=== PATIENT | female | born 1960 | race Two or more races ===

== ENCOUNTER 2020-11-05 10:51 | Outpatient (CLI) | payer OTHER ==
[~2020-11-05 10:51] MED LIST: DICLOFENAC SODI50 MG PO; NORFLEX100MG PO; SYNTHROID50 MCG PO; ZIAC 2.5-6.251 EACH
[2020-11-29] MEDS ORDERED: DICLOFENAC POTA50 MG PO (09:35)
== END 2020-11-05 13:38 | disposition home or self-care (01) ==
LOC: MRI 10:51
PROVIDERS: ATTEND Physical Medicine & Rehabilitation
DX: M54.5 Low back pain (principal)
CPT/HCPCS: 72148

== ENCOUNTER 2021-07-17 12:56 | Outpatient (CLI) | payer OTHER ==
[~2021-07-17 12:56] MED LIST changes: +DICLOFENAC POTA50 MG PO; +LODINE XL500 MG PO
== END 2021-07-17 13:05 | disposition home or self-care (01) ==
LOC: RAD 12:56
PROVIDERS: ATTEND Orthopaedic Surgery
DX: M25.511 Pain in right shoulder (principal)

== ENCOUNTER 2021-10-02 14:13 | Outpatient (CLI) | payer OTHER | END 2021-10-02 14:23 | disposition home or self-care (01) | LOC: RAD 14:13 | PROVIDERS: ATTEND Orthopaedic Surgery | DX: M25.571 Pain in right ankle and joints of right foot (principal) ==

== ENCOUNTER 2023-09-02 14:17 | Outpatient (CLI) | payer OTHER | END 2023-09-02 14:21 | disposition home or self-care (01) | LOC: RAD 14:17 | PROVIDERS: ATTEND Orthopaedic Surgery | DX: M25.562 Pain in left knee (principal); M23.92 Unspecified internal derangement of left knee ==

== ENCOUNTER → 2023-09-13 09:01 | Outpatient (CLI) | payer OTHER ==
[~2023-09-13 09:01] MED LIST changes: +BISOPROLOL FUMAR5 MG PO; +LEVOTHYROXINE25 MCG PO
[2023-09-13 10:04] LABS: HEMATOCRIT 38.7 % (36.0-45.00); HEMOGLOBIN 13.2 g/dL (12.0-15.00); MEAN CELL VOLUME 98.8 fL (80.00-100.00); MEAN CORPUSCULAR HEMOGLOBIN 33.8 pg (27.00-32.0); MEAN CORPUSCULAR HGB CONC 34.2 g/dl (32.0-36.0); PLATELET COUNT 208 K/uL (150-450); RED BLOOD COUNT 3.91 M/uL (4.00-6.00); RED CELL DISTRIBUTION WIDTH 13.6 % (11.5-14.5)
[2023-09-13 10:21] LABS: PH,URINE 6.5 (5.0-8.0); URINE APPEARANCE Clear; URINE BILIRRUBIN Negative (NEGATIVE); URINE BLOOD Small; URINE COLOR Yellow; URINE GLUCOSE Negative (NEGATIVE); URINE LEUKOCYTE Small; URINE NITRATE Negative; URINE PROTEIN Negative (NEGATIVE); URINE UROBILINOGEN 0.2 E.U./dl
[2023-09-13 10:23] LABS: URINE BACTERIA 163.7 uL (0.0-1933); URINE EPITHELIAL CELLS 16.8 uL (0.0-38.8); URINE RBC 42.9 uL (0.0-20.8); URINE WBC 31.6 uL (0.0-23.2)
[2023-09-13 10:31] LABS: INR 0.98; PARTIAL THROMBOPLASTIN TIME 32.1 SECONDS (22.0-34.0); PROTHROMBIN TIME 10.3 SECONDS (9.0-11.5)
[2023-09-13 10:32] LABS: ALBUMIN 3.7 gm/dL (3.4-5.0); BILIRUBIN TOTAL 0.76 mg/dL (0.3-1.2); CALCIUM 9.7 mg/dL (8.5-10.1); CREATININE SERUM 0.67 mg/dL (0.55-1.02); GFR 88.33; GLOBULINA 4.1 G/DL (2.4-3.5); POTASSIUM 4.63 mEq/L (3.5-5.1); TOTAL PROTEIN 7.8 gm/dL (6.4-8.2)
[2023-09-13 10:40] LABS: COL EPI 132 SECONDS (82-175)
== END | disposition home or self-care (01) ==
LOC: LAB 09:01
PROVIDERS: ATTEND Orthopaedic Surgery
DX: D68.8 Other specified coagulation defects (principal); N39.0 Urinary tract infection, site not specified; E03.8 Other specified hypothyroidism; E11.9 Type 2 diabetes mellitus without complications; E55.9 Vitamin D deficiency, unspecified

== ENCOUNTER 2023-09-27 07:16 | Day surgery (SDC) | payer OTHER ==
[~2023-09-27] VITALS: Ht 165.1 cm; Wt 83.9 kg
[2023-09-27] MEDS ORDERED: CEFAZOLIN SODIUM 1,000 MG VIAL ONE (09:56)
[2023-09-27] MEDS ORDERED: BUPIVACAINE HCL/PF 0.5% 30ML ML ONE (10:06)
[2023-09-27] MEDS ORDERED: EPINEPHRINE HCL/PF 1 MG/ML AMPUL ONE ×2 (10:08→12:48)
[2023-09-27] MEDS ORDERED: LIDOCAINE HCL/EPINEPHRINE 10MG/ML 1% 50ML IJ ONE (10:08)
[2023-09-27] MEDS ORDERED: ISOPROPYL ALCOHOL 30 ML OUNCE TOP SCH (13:45)
[2023-09-27] MEDS ORDERED: CEFAZOLIN SODIUM 1,000 MG VIAL IV SCH (13:45)
[2023-09-27] MEDS ORDERED: EPINEPHRINE HCL/PF 1 MG/ML AMPUL IR SCH (13:45)
[2023-09-27] MEDS ORDERED: BUPIVACAINE HCL/PF 0.5% 30ML ML IV SCH (13:45)
[2023-09-27] MEDS ORDERED: LIDOCAINE HCL/EPINEPHRINE 30 ML ML IJ SCH (13:45)
== END 2023-09-27 16:45 | disposition home or self-care (01) ==
LOC: CIR.AMB 07:16
PROVIDERS: ATTEND Orthopaedic Surgery
DX: M75.121 Complete rotator cuff tear or rupture of right shoulder, not specified as traumatic (principal); M19.011 Primary osteoarthritis, right shoulder; M65.811 Other synovitis and tenosynovitis, right shoulder

== ENCOUNTER 2025-01-08 09:52 | Outpatient (CLI) | payer OTHER ==
[2025-01-08 11:11] LABS: URINE APPEARANCE Clear; URINE BILIRRUBIN Negative (NEGATIVE); URINE BLOOD Negative; URINE COLOR Yellow; URINE GLUCOSE Negative (NEGATIVE); URINE KETONE Trace (NEGATIVE); URINE LEUKOCYTE Moderate; URINE NITRATE Negative; URINE PROTEIN Trace (NEGATIVE); URINE UROBILINOGEN 1.0 E.U./dl
[2025-01-08 11:19] LABS: URINE BACTERIA 823.0 uL (0.0-1933); URINE EPITHELIAL CELLS 31.5 uL (0.0-38.8); URINE RBC 19.9 uL (0.0-20.8); URINE WBC 35.2 uL (0.0-23.2)
[2025-01-08 11:19] LABS: BASO % 0.7 % (0.1-1.2); EOS # 0.14 (0.04-0.54); EOS % 3.4 % (0.7-7.0); LYMPH # 1.57 (1.18-3.74); LYMPH % 38.2 % (19.3-53.1); MEAN PLATELET VOLUME 11.40 fl (9.4-12.4); MONO # 0.37 (0.24-0.82); MONO % 9.0 % (4.7-12.5); NEUT # 1.99 (1.56-6.13); NEUT % 48.5 % (34.0-71.1); RED CELL DISTRIBUTION WIDTH 12.7 % (11.6-14.4)
[2025-01-08 11:29] LABS: URINE CAST 0.00 uL (0.0-1.40)
[2025-01-08 12:24] LABS: ALT/SGPT 24.0 U/L (12-78); AST/SGOT 18.0 U/L (15-37); BILIRUBIN TOTAL 0.92 mg/dL (0.3-1.2); BUN CREA RATIO 23.0 (7.0-25.0); CREATININE SERUM 0.73 mg/dL (0.55-1.02); GFR 79.76; GLOBULINA 4.3 G/DL (2.4-3.5); GLUCOSE FASTING 100.0 mg/dL (65-100); OSMOLALITY SERUM 287.0 MOSM/KG (275-295)
[2025-01-08 12:29] LABS: COL EPI 101 SECONDS (82-175)
[2025-01-08 12:56] LABS: INR 0.98
== END 2025-01-08 10:09 | disposition home or self-care (01) ==
LOC: LAB 09:52
PROVIDERS: Physical Medicine & Rehabilitation; ATTEND Orthopaedic Surgery
DX: D64.9 Anemia, unspecified (principal); E88.89 Other specified metabolic disorders; D68.8 Other specified coagulation defects; N39.0 Urinary tract infection, site not specified; E11.9 Type 2 diabetes mellitus without complications; Z20.822 Contact with and (suspected) exposure to COVID-19; Z76.89 Persons encountering health services in other specified circumstances; M17.12 Unilateral primary osteoarthritis, left knee; M79.652 Pain in left thigh; M79.605 Pain in left leg; I10 Essential (primary) hypertension

== ENCOUNTER 2025-01-18 15:13 | Inpatient (IN) | payer OTHER ==
[~2025-01-18] VITALS: Ht 152.4 cm; Wt 84.8 kg
[2025-01-22] MEDS ORDERED: CEFAZOLIN SODIUM 1,000 MG VIAL ONE ×2 (08:44→17:39)
[2025-01-22] MEDS ORDERED: TRANEXAMIC ACID 100MG/1ML (1000MG) AMPUL ONE (08:44)
[2025-01-22] MEDS ORDERED: KETOROLAC TROMETHAMINE 60 MG VIAL IM ONE (10:40)
[2025-01-22] MEDS ORDERED: BUPIVACAINE HCL/MPF 0.5% 30ML VIAL ONE (10:40)
[2025-01-22] MEDS ORDERED: LIDOCAINE HCL 1%/EPINEPHRINE 20ML VIAL IJ ONE (10:41)
[2025-01-22] MEDS ORDERED: VANCOMYCIN HCL 1,000 MG VIAL ONE (10:41)
[2025-01-22] MEDS ORDERED: MORPHINE SULFATE 4 MG/ML VIAL IV ONE ×3 (12:30→19:50)
[2025-01-22] MEDS ORDERED: ENALAPRILAT DIHYDRATE 1.25 MG/ML VIAL IV PRN (14:00)
[2025-01-22] MEDS ORDERED: TRAMADOL HCL 50 MG TABLET PO PRN (17:00)
[2025-01-22] MEDS ORDERED: CELECOXIB 200 MG CAPSULE PO SCH (17:00)
[2025-01-22] MEDS ORDERED: ONDANSETRON 4 MG TAB.RAPDIS PO PRN (17:00)
[2025-01-22] MEDS ORDERED: SODIUM CHLORIDE 0.45 % 1,000 ML IV SCH (17:00)
[2025-01-22] MEDS ORDERED: PROMETHAZINE HCL 50 MG/ML AMPUL IM PRN (17:00)
[2025-01-22] MEDS ORDERED: MEPERIDINE HCL/PF 50 MG/ML VIAL IM PRN (17:00)
[2025-01-22] MEDS ORDERED: ACETAMINOPHEN 325 MG TABLET PO SCH (17:00)
[2025-01-22] MEDS ORDERED: ONDANSETRON HCL 2 MG/ML VIAL IV PRN (17:00)
[2025-01-22] MEDS ORDERED: CEFAZOLIN SODIUM 1,000 MG VIAL IV SCH (17:00)
[2025-01-22] MEDS ORDERED: PANTOPRAZOLE SODIUM 40 MG TABLET.DR PO SCH (17:18)
[2025-01-22 20:38] VITALS: BP 118/54; O2SAT 95
[2025-01-22] MEDS ORDERED: KETOROLAC TROMETHAMINE 10 MG TABLET PO SCH (21:00)
[2025-01-23] MEDS ORDERED: LEVOTHYROXINE SODIUM 25 MCG TABLET PO SCH (06:00)
[2025-01-23 06:19] LABS: BASO % 0.4 % (0.1-1.2); EOS # 0.15 (0.04-0.54); EOS % 2.9 % (0.7-7.0); LYMPH # 1.17 (1.18-3.74); LYMPH % 23.0 % (19.3-53.1); MEAN PLATELET VOLUME 11.20 fl (9.4-12.4); MONO # 0.52 (0.24-0.82); MONO % 10.2 % (4.7-12.5); NEUT # 3.21 (1.56-6.13); NEUT % 63.1 % (34.0-71.1); RED CELL DISTRIBUTION WIDTH 12.9 % (11.6-14.4)
[2025-01-23] MEDS ORDERED: PATIENTS OWN MEDICATION (MEDICAMENTO EN PISO) PO SCH (09:00)
[2025-01-23] MEDS ORDERED: RIVAROXABAN 10 MG TAB PO SCH (09:00)
[2025-01-23] MEDS ORDERED: IRON FUM,PS/FOLIC/BCOMP,C NO.9 1 CAP CAPSULE PO SCH (09:00)
[2025-01-23 09:02] VITALS: BP 94/43; O2SAT 95
[2025-01-23] MEDS ORDERED: SOD FERRIC GLUC COMPLX/SUCROSE 125 MG in 0.9 % SODIUM CHLORIDE 100 ML IV SCH (17:00)
[2025-01-23 17:30] VITALS: BP 123/71; O2SAT 95
[2025-01-24] VITALS: BP 123/67; O2SAT 95
[2025-01-24 07:54] LABS: BASO % 0.1 % (0.1-1.2); EOS # 0.18 (0.04-0.54); EOS % 2.5 % (0.7-7.0); LYMPH # 1.01 (1.18-3.74); LYMPH % 14.2 % (19.3-53.1); MEAN PLATELET VOLUME 11.30 fl (9.4-12.4); MONO # 0.46 (0.24-0.82); MONO % 6.5 % (4.7-12.5); NEUT # 5.42 (1.56-6.13); NEUT % 76.1 % (34.0-71.1); RED CELL DISTRIBUTION WIDTH 12.7 % (11.6-14.4)
[2025-01-24] MEDS ORDERED: SENNA/DOCUSATE SODIUM 1 TAB TABLET PO SCH (09:00)
[2025-01-24 09:29] VITALS: BP 127/73; O2SAT 95
[2025-01-24 17:05] LABS: COVID-19 AG NEGATIVE (NEGATIVE)
[2025-01-24 17:16] LABS: ALT/SGPT 17.0 U/L (12-78); AST/SGOT 24.0 U/L (15-37); BILIRUBIN TOTAL 0.66 mg/dL (0.3-1.2); BUN CREA RATIO 14.0 (7.0-25.0); CREATININE SERUM 0.7 mg/dL (0.55-1.02); GFR 83.72; GLOBULINA 3.9 G/DL (2.4-3.5); GLUCOSE FASTING 95.0 mg/dL (65-100); OSMOLALITY SERUM 282.0 MOSM/KG (275-295)
[2025-01-24 17:45] VITALS: BP 122/66; O2SAT 97
[2025-01-24] MEDS ORDERED: AMINO ACIDS 1 EACH TABLET PO SCH (19:23)
[2025-01-25 01:23] VITALS: BP 126/72; O2SAT 99
== END 2025-01-25 17:30 | DRG 470 ==
LOC: SURG 01-22 07:00 → O/R 01-22 07:03 → SURG 01-22 15:12 → SURH 01-22 16:07
PROVIDERS: ADMIT Orthopaedic Surgery; ATTEND Orthopaedic Surgery
PROC: 0SRD0J9 Replacement of Left Knee Joint with Synthetic Substitute, Cemented, Open Approach (ICD-10-PCS; principal; 2025-01-22 07:00)
DX: M17.12 Unilateral primary osteoarthritis, left knee (principal)

== ENCOUNTER 2025-06-21 08:56 | Outpatient (CLI) | payer OTHER | END 2025-06-21 08:57 | disposition home or self-care (01) | LOC: NUCLEAR 08:56 | PROVIDERS: ATTEND Orthopaedic Surgery | DX: M79.605 Pain in left leg (principal); M25.562 Pain in left knee ==

== ENCOUNTER 2025-06-22 08:32 | Outpatient (CLI) | payer OTHER | END 2025-06-22 08:33 | disposition home or self-care (01) | LOC: NUCLEAR 08:32 | PROVIDERS: ATTEND Orthopaedic Surgery | DX: M79.605 Pain in left leg (principal); M25.562 Pain in left knee ==